=== PATIENT | male | born 1985 | race Caucasian/White ===

== ENCOUNTER 2021-05-23 08:00 | Outpatient (CLI) | payer OTHER ==
--- NOTE | 2021-05-23 18:43 | XRAY Report ---
PROCEDURE: Ribs 2 View RT INDICATIONS: RIGHT SIDED RIB PAIN TECHNIQUE: 4 views of the right ribs were acquired. COMPARISON: None. FINDINGS: Surgical changes and devices: None. Bones and chest wall: Intimal irregularity at the costochondral junction of the eighth and ninth ribs seen on one view. These could represent nondisplaced fractures. No dislocation. No suspicious bony lesions. Overlying soft tissues appear unremarkable. Lungs and pleura: The visualized lung appears clear. No pleural effusions or pneumothorax are visib le. IMPRESSION: Question nondisplaced fractures at the eighth and ninth costochondral junctions. Recommend correlation for point tenderness. Reviewed by: Jean Sagastume MD on 05/23/2021 6:41 PM PST Approved by: Jean Sagastume MD on 05/23/2021 6:41 PM PST Station ID: [id number]
== END 2021-05-23 23:59 | disposition home or self-care (01) ==
LOC: DI.S 08:00
PROVIDERS: ATTEND Physician Assistant Medical
DX: R07.81 Pleurodynia (principal)

== ENCOUNTER 2021-08-24 08:00 | Outpatient (CLI) | payer OTHER ==
--- NOTE | 2021-08-24 16:45 | XRAY Report ---
PROCEDURE: Wrist 3 View RT INDICATIONS: RIGHT WRIST PAIN TECHNIQUE: 3 views of the wrist were acquired. COMPARISON: None FINDINGS: Bones: Faintly seen distal radius fracture, which is best seen on the lateral view. There is intra-a rticular involvement. No additional fractures or dislocations. No suspicious bony lesions. Focal degenerative change is s een involving the first carpometacarpal joint, with milder degenerative changes seen elsewhere. Soft tissues: No suspicious soft tissue calcifications. IMPRESSION: There is a faintly seen distal radius fracture, with intra-articular involvement. This is best demons trated on the lateral view. If it would be helpful for clinical management decision making, please consider a dedicated wrist CT for further evaluation. Reviewed by: Matthias Henderson MD on 08/24/2021 3:44 PM RUSLAN Approved by: Matthias Henderson MD on 08/24/2021 3:44 PM RUSLAN Station ID: [id number]
== END 2021-08-24 23:59 | disposition home or self-care (01) ==
LOC: DI.S 08:00
PROVIDERS: ATTEND Physician Assistant Medical
DX: S52.571A Other intraarticular fracture of lower end of right radius, initial encounter for closed fracture (principal)

== ENCOUNTER 2021-08-28 17:43 | Outpatient (CLI) | payer OTHER ==
--- NOTE | 2021-08-29 11:05 | CT Report ---
PROCEDURE: UPPER EXTREMITY WO - RT INDICATIONS: RIGHT RADIUS FX TECHNIQUE: Noncontrast 3 mm axial sections acquired of the right wrist and distal forearm, with coronal and sagi ttal reformats. For radiation dose reduction, the following was used: automated exposure control, a djustment of mA and/or kV according to patient size. COMPARISON: Plain films dated 08/24/2021. FINDINGS: Image quality: Excellent. Bones: There is a minimally displaced fracture of the ulnar aspect of the distal radius, and an obli que sagittal plane, with articular surface extension to the radiocarpal joint. Ulna is within normal limits. Carpal bones are intact. Visualized metacarpals are intact. Soft tissues: Grossly unremarkable. No soft tissue fluid collections. IMPRESSION: Minimally displaced distal radial fracture. Reviewed by: Jose Jin MD on 08/29/2021 11:03 AM PDT Approved by: Jose Jin MD on 08/29/2021 11:03 AM PDT Station ID: [id number]
== END 2021-08-28 17:44 | disposition home or self-care (01) ==
LOC: DI 17:43
PROVIDERS: ATTEND Physician Assistant
DX: S52.501A Unspecified fracture of the lower end of right radius, initial encounter for closed fracture (principal)

== ENCOUNTER 2021-09-13 08:00 | Outpatient (CLI) | payer OTHER ==
--- NOTE | 2021-09-13 13:22 | XRAY Report ---
PROCEDURE: Wrist 3 View RT INDICATIONS: WRIST FX TECHNIQUE: 3 views of the wrist were acquired. COMPARISON: 08/24/2021 FINDINGS: Bones: Minimally displaced distal radius fracture demonstrates interval healing with decreased fract ure lucency. No suspicious bony lesions. Scaphoid view: Normal Soft tissues: No suspicious soft tissue calcifications. IMPRESSION: Healing minimally displaced distal radius fracture. Reviewed by: Jorge A Badillo on 09/13/2021 1:21 PM PDT Approved by: Jorge A Badillo on 09/13/2021 1:21 PM PDT Station ID: [id number]
== END 2021-09-13 23:59 | disposition home or self-care (01) ==
LOC: DI.WOS 08:00
PROVIDERS: ATTEND Physician Assistant
DX: S52.571D Other intraarticular fracture of lower end of right radius, subsequent encounter for closed fracture with routine healing (principal)

== ENCOUNTER 2021-10-11 08:00 | Outpatient (CLI) | payer OTHER ==
--- NOTE | 2021-10-11 17:10 | XRAY Report ---
PROCEDURE: Wrist 3 View RT INDICATIONS: WRIST FX TECHNIQUE: 3 views of the wrist were acquired. COMPARISON: X-ray right wrist, 08/24/2021 and 09/13/2021. FINDINGS: Bones: Faint lucency in the distal radial metaphysis is less conspicuous. The alignment is stable. N o suspicious bony lesions. Soft tissues: No suspicious soft tissue calcifications. IMPRESSION: Healing distal radial metaphyseal fracture. Reviewed by: Trini Norwood MD on 10/11/2021 5:09 PM PDT Approved by: Trini Norwood MD on 10/11/2021 5:09 PM PDT Station ID: [id number]
== END 2021-10-11 23:59 | disposition home or self-care (01) ==
LOC: DI.WOS 08:00
PROVIDERS: ATTEND Physician Assistant
DX: S52.571D Other intraarticular fracture of lower end of right radius, subsequent encounter for closed fracture with routine healing (principal)

== ENCOUNTER 2022-04-10 08:15 | Outpatient (CLI) | payer OTHER ==
--- NOTE | 2022-04-10 13:58 | XRAY Report ---
PROCEDURE: Tib/Fib LT INDICATIONS: LEFT CALF PAIN TECHNIQUE: 2 views of the tibia and fibula were acquired. COMPARISON: None. FINDINGS: Bones: No fractures or dislocations. No suspicious bony lesions. Soft tissues: No suspicious soft tissue calcifications or masses. IMPRESSION: No acute finding or radiographic evidence of stress fracture. Reviewed by: Herbie Gibbs MD on 04/10/2022 1:56 PM PST Approved by: Herbie Gibbs MD on 04/10/2022 1:56 PM PST Station ID: [id number]
== END 2022-04-10 23:59 | disposition home or self-care (01) ==
LOC: DI.WOS 08:15
PROVIDERS: ATTEND Physician Assistant Surgical
DX: S86.112A Strain of other muscle(s) and tendon(s) of posterior muscle group at lower leg level, left leg, initial encounter (principal)

== ENCOUNTER 2022-12-16 08:00 | Outpatient (CLI) | payer OTHER ==
--- NOTE | 2022-12-16 17:38 | XRAY Report ---
PROCEDURE: Wrist 3 View RT INDICATIONS: RIGHT WRIST FRACTURE TECHNIQUE: 3 views of the wrist were acquired. COMPARISON: 12/09/2022. FINDINGS: Bones: Again noted is impacted and minimally displaced right distal radial fracture not significantl y changed in appearance from previous study. Ulnar styloid tip fracture is again noted and unchanged. No new fracture or dislocation. No suspicious bony lesions. Soft tissues: No suspicious soft tissue calcifications or masses. IMPRESSION: Stable appearance of impacted distal radial fracture and ulnar styloid tip fracture. Stable wrist ali gnment. No new fracture or dislocation. Reviewed by: Vladimir Rios MD on 12/16/2022 5:37 PM PDT Approved by: Vladimir Rios MD on 12/16/2022 5:37 PM PDT Station ID: [id number]
== END 2022-12-16 23:59 | disposition home or self-care (01) ==
LOC: DI.WOS 08:00
PROVIDERS: ATTEND Orthopaedic Surgery
DX: S52.501D Unspecified fracture of the lower end of right radius, subsequent encounter for closed fracture with routine healing (principal); S52.511D Displaced fracture of right radial styloid process, subsequent encounter for closed fracture with routine healing

== ENCOUNTER 2023-01-27 08:00 | Outpatient (CLI) | payer OTHER ==
--- NOTE | 2023-01-27 16:24 | XRAY Report ---
PROCEDURE: Wrist 3 View RT INDICATIONS: RIGHT WRIST FRACTURE TECHNIQUE: 3 views of the wrist were acquired. COMPARISON: 12/16/2022 FINDINGS: Bones: Nondisplaced distal radial fracture shows increasing linear sclerosis. Small styloid fracture noted as well. Joint spaces preserved. Normal bone mineralization Soft tissues: No suspicious soft tissue calcifications or masses. IMPRESSION: Healing distal radial fracture. Unchanged ulnar styloid fracture Reviewed by: Kumar Davalos MD on 01/27/2023 3:23 PM [place] Approved by: Kumar Davalos MD on 01/27/2023 3:23 PM AKST Station ID: [id number]
== END 2023-01-27 23:59 | disposition home or self-care (01) ==
LOC: DI.WOS 08:00
PROVIDERS: ATTEND Orthopaedic Surgery
DX: S52.531D Colles' fracture of right radius, subsequent encounter for closed fracture with routine healing (principal)